=== PATIENT | female | born 1980 | race Hispanic/Latino ===

== ENCOUNTER 2023-12-27 13:59 | Emergency (ER) | payer SELFPAY ==
[2023-12-27 14:01] VITALS: BP 119/76
[2023-12-27 14:27] LABS: COVID-19 Antigen Negative (Negative)
[2023-12-27 15:00] VITALS: BP 108/62
--- NOTE | 2023-12-27 15:03 | ED.GENMED ---
History of Present Illness
General
Chief Complaint: Fever
Source: patient
Exam Limitations: none
Time Seen by Provider: 12/27/23 14:29
Nursing documentation reviewed up to this point in time: agreed with
Travel History
Have you had any contact with someone who has COVID-19?: No
Do you have any symptoms of coronavirus? Fever > 100 degrees, chills, cough, shortness of breath, sore throat, loss of taste or smell, muscle aches, or headache?: No
History of Present Illness
History of Present Illness:
43-year-old female with no significant chronic medical issues presents to the emergency room for evaluation of flulike illness. Patient reports onset of symptoms 5 days ago they have been constant since that time. She reports generalized malaise,
subjective fever and chills, coughing. She says she feels very fatigued and she has myalgias. She says she has been having headaches. She says symptoms do not seem to be going away so she finally came to the emergency room for assessment. Denies
any chest pain or shortness of breath. Denies any nausea, vomiting, diarrhea. She denies any other complaints.
Review of Systems
Review of Systems
All Other Systems: ROS reviewed and negative except as documented in HPI and ROS
Constitutional: Reports fever, fatigue and chills
EENT: Denies sore throat or runny nose
Respiratory: Reports cough; Denies trouble breathing
Cardiac: Denies chest pain or palpitations
ABD/GI: Denies abdominal pain, nausea, vomiting or diarrhea
: Denies flank pain
Musculoskeletal: Reports muscle pain (Myalgias)
Neurological: Reports headache; Denies dizzy, weakness or numbness
Phy Exam
Physical Exam
Physical Exam:
General: Awake, alert; no acute distress
Head: Normocephalic, atraumatic
Eyes: Conjunctiva normal, sclera anicteric
Throat: Airway intact, handling secretions, moist mucous membranes
Neck: Trachea midline, supple without meningismus
Lungs: Clear to auscultation bilaterally, no wheezing, rales, rhonchi
Heart: Regular rate and rhythm, no murmurs, gallops, or rubs
Abd: Soft, non distended, nontender
Neuro: Cranial nerves grossly intact, speech fluid
Skin: no rash
Extremities: No edema in extremities, equal pulses in all extremities
Scores
Heart Failure Risk
Heart Failure Risk Score: Not Applicable
Heart Score for Chest Pain Patients
STEMI patient?: Not applicable
Withdrawal Assessment of Alcohol
Withdrawal Assessment Completed?: Not applicable
Course
Orders/Labs/Results
Orders:
Orders
12/27/23 14:06
COVID-19 Antigen Urgent
Source: Nasal Swab
Influenza A+B Rapid Molecular Urgent
[facility]HIK Source: Nasal Swab
Specimen Description:
12/27/23 15:01
Ketorolac [Toradol] 30 mg IM NOW STA
Vital Signs
Initial and Last Documented VS:
Initial Vital Signs
Temp Pulse Resp BP Pulse Ox
38.1 C H 98 18 119/76 98
12/27/23 14:01 12/27/23 14:01 12/27/23 14:01 12/27/23 14:01 12/27/23 14:01
Last Documented Vital Signs
Temp Pulse Resp BP Pulse Ox
38.1 C H 98 18 119/76 98
12/27/23 14:01 12/27/23 14:01 12/27/23 14:01 12/27/23 14:01 12/27/23 14:01
MDM/Problems Addressed
Differential Diagnosis Includes:
Influenza, COVID, other viral syndrome; pneumonia considered less likely
MDM/Problems Addressed:
43-year-old female presents with flulike illness for the past 5 days. She has a low-grade fever otherwise normal vitals. Exam as above. Swabbed for COVID which was negative, influenza swab was positive suspect this is the etiology of her
symptoms. Patient outside the window of benefit for Tamiflu, advised symptomatic treatment/supportive care and will follow-up with PCP.
*Pulse Oximetry
Patient hypoxic: no
*Critical Care Note
Total Time (30-74mins, 75-104mins- exclusive of procedures): Not Applicable
Data Reviewed
Source: patient
Prescriptions/Medications Considered But Not Given:
Considered Tamiflu but patient is outside the window of benefit for this medication
Further Testing Considered But Not Given:
Consider chest x-ray but with normal oxygen saturation, normal respiratory rate, clear lungs and nontoxic patient with positive flu swab nothing to suggest pneumonia at this point and no indication for emergent chest x-ray
ED Attending Note
-
Portions of this chart may have been created with voice recognition software.� Occasional wrong word or��sound alike� substitutions may have occurred due to the inherent limitations of voice recognition software.
Discharge Plan
Departure
Patient Disposition: Home (Routine Discharge)
Date of Disposition: 12/27/23
Time of Disposition: 15:03
Patient with high blood pressure during this ER visit?: No
Discharge Problem:
Influenza
Instructions: Fever, Adult (DC), Flu, Adult ED
Stand Alone Forms: Return to Work
Activity Restrictions/Additional Instructions:
Thank you for visiting the Emergency Department at [facility].
1. Please schedule a follow up appointment as directed. Call first thing tomorrow morning to make an appointment.
2. If indicated, please take your medications as instructed and indicated on discharge paperwork.
3. If any of your symptoms do not improve, or persist, or become more severe within 6-12 hours, please return to the emergency department for further care.
4. Please return to the emergency department if you develop a headache, neck pain/stiffness, fever greater than 100.4F, chest pain, shortness of breath, persistent nausea, vomiting, slurred speech, difficulty walking, numbness/tingling, weakness,
signs of infection or any other symptoms that are worrisome to you.
Please call [phone] if you have any questions.
Interventions
Interventions:
*Risk Screen - Suicide Last Done: 12/27/23 14:01
*General Assessment Last Done: 12/27/23 14:01
*Neglect/Abuse Screening Last Done: 12/27/23 14:01
Discharge Date and Time
Print Language: FINNISH
[2023-12-27] MEDS: TORADOL 30 MG IM (15:27)
== END 2023-12-27 15:35 | disposition home or self-care (01) ==
LOC: EMR 13:59
PROVIDERS: Emergency Medicine; EMERGENCY PHYSICIAN Emergency Medicine; FAMILY PHYSICIAN Nurse Practitioner Adult Health
DX: J11.1 Influenza due to unidentified influenza virus with other respiratory manifestations (principal)
CPT/HCPCS: 99284; 96372; 87502; 87811